=== PATIENT | male | born 1985 | race Caucasian/White ===

== ENCOUNTER 2016-08-20 01:00 | Emergency (ER) | payer OTHER ==
[~2016-08-20] VITALS: Ht 180.3 cm; Wt 104.3 kg
[2016-08-20] MEDS ORDERED: IV NORMAL SALINE 1000ML BAG 1,000 ML IV SCH (01:30)
[2016-08-20] MEDS ORDERED: CONTRAST GIVEN MC PRN (01:45)
[2016-08-20] MEDS ORDERED: IOHEXOL 300 MG/ML 75 ML VIAL IV ONE (01:45)
[2016-08-20 01:55] LABS: BASO % 1 % (0-3); EOS % 5 % (0-3); HEMATOCRIT 41.3 % (39.0-53.0); HEMOGLOBIN 14.5 g/dL (13.0-17.5); LYMPH # 2.4 x10^3/uL (1.0-4.8); LYMPH % 41 % (24-48); MEAN CORPUSCULAR HEMOGLOBIN 34 pg (25-35); MEAN CORPUSCULAR HGB CONC 35 g/dL (31-37); MEAN CORPUSCULAR VOLUME 98 fL (79-100); MONO % 12 % (0-9); NEUT % 42 % (31-73); PLATELET COUNT 156 x10^3/uL (140-400); RED BLOOD COUNT 4.23 x10^6/uL (4.30-5.70); RED CELL DISTRIBUTION WIDTH 13.3 % (11.5-14.5); WHITE BLOOD COUNT 5.8 x10^3/uL (4.0-11.0)
[2016-08-20 02:03] LABS: CALCIUM 8.7 mg/dL (8.5-10.1); CREATININE 1.1 mg/dL (0.7-1.3); GFR 78.6; POTASSIUM 3.8 mmol/L (3.5-5.1)
[2016-08-20 02:11] LABS: ALBUMIN 4.2 g/dL (3.4-5.0); ALBUMIN/GLOBULIN RATIO 1.2 (1.0-1.7); TOTAL BILIRUBIN 0.7 mg/dL (0.2-1.0); TOTAL PROTEIN 7.8 g/dL (6.4-8.2)
--- NOTE | 2016-08-20 02:29 | RAD ---
INDICATION: Abdomen pain. COMPARISON: None TECHNIQUE: Axial CT images obtained through the abdomen and pelvis. Intravenous contrast was utilized. One or more of the following individualized dose reduction techniques were utilized for this examination: 1. Automated exposure control; 2. Adjustment of the mA and/or kV according to patient size; 3. Use of iterative reconstruction technique. FINDINGS: Abdominal aorta not aneurysmal. No intrahepatic bile duct dilation. No peripancreatic edema. Spleen unremarkable. No hydronephrosis. No definite evidence of small bowel obstruction. Bladder unremarkable within limits of CT. Appendix does not appear grossly inflamed. IMPRESSION: No evidence of appendicitis, small bowel obstruction or hydronephrosis. Electronically signed by: Fadi Newman (Aug 20, 2016 02:28:03)
--- NOTE | 2016-08-20 02:37 | PHYS DOC ---
Past Medical History Past Medical History: Other Additional Past Medical Histor: heart murmur Past Surgical History: Other Additional Past Surgical Histo: wisdom teeth Alcohol Use: Occasionally Drug Use: None Adult General Chief Complaint Chief Complaint: ABDOMINAL PAIN HPI HPI Patient is a 30 year old gentleman who presents here today complaining of. Buccal pain 1 week that is now radiating down to his right lower quadrant. Patient denies any history of hypertension diabetes liver longer kidney problems. Patient has not had any abdominal surgeries in the past. Patient does not smoke drink or do any drugs. Patient is not allergic to any medications. 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 Patient denies any fevers shakes chills nausea vomiting diarrhea dysuria frequency urgency hematemesis, bright red blood per rectum, chest pain shortness of breath, hematuria. Patient reports the pain is intermittent. He reports the pain increases when he is moving around. Patient presents pain increases when he is in his his truck. Patient's physical exam was unremarkable. Patient reports she is currently pain- free. Patient's abdomen was soft nontender no rebound or guarding. No psoas or obturator signs. Normal active bowel sounds. No hernia defect is palpable are appreciable. Patient is currently completely nontender. A/P #1 abdominal pain. Patient will be discharged to home in stable condition. Patient had a workup in the ER that was unremarkable with a normal CT scan and normal labs. Again patient is completely asymptomatic at this time. I discussed with the patient this possibly could be secondary to gastritis versus possibly intermittent ventral hernia. At this time patient has no appreciable hernia defect and his CT scan did not show any signs or symptoms of her hernia or appendicitis. Review of Systems Review of Systems Constitutional: Denies fever or chills [] Eyes: Denies change in visual acuity, redness, or eye pain [] HENT: Denies nasal congestion or sore throat [] All other review systems are negative except as documented in the history of present illness portion. Current Medications Current Medications Current Medications Medications (Trade) Dose Ordered Sig/Luz Start Time Stop Time Status Last Admin Dose Admin Info (Do NOT chart on this entry -- for MONITORING) 1 each PRN DAILY PRN 08/20/16 01:45 08/20/16 03:26 DC Iohexol (Omnipaque 300 Mg/ml) 75 ml 1X ONCE 08/20/16 01:45 08/20/16 01:46 DC 08/20/16 02:15 75 ML Sodium Chloride (Iv Sodium Chloride 0.9% 1000ml Bag) 1,000 ml @ 1,000 mls/hr Q1H 08/20/16 01:30 08/20/16 02:29 DC 08/20/16 01:39 1,000 MLS/HR Allergies Allergies Allergies Coded Allergies Type Severity Reaction Last Updated Verified No Known Drug Allergies 02/29/16 No Physical Exam Physical Exam Constitutional: Well developed, well nourished, no acute distress, non-toxic appearance. [] HENT: Normocephalic, atraumatic, bilateral external ears normal, oropharynx moist, no oral exudates, nose normal. [] Eyes: PERRLA, EOMI, conjunctiva normal, no discharge. [] Neck: Normal range of motion, no tenderness, supple, no stridor. [] Cardiovascular:Heart rate regular rhythm, no murmur [] Lungs & Thorax: Bilateral breath sounds clear to auscultation [] Abdomen: Bowel sounds normal, soft, no tenderness, no masses, no pulsatile masses. [] Skin: Warm, dry, no erythema, no rash. [] Back: No tenderness, no CVA tenderness. [] Extremities: No tenderness, no cyanosis, no clubbing, ROM intact, no edema. [] Neurologic: Alert and oriented X 3, normal motor function, normal sensory function, no focal deficits noted. [] Psychologic: Affect normal, judgement normal, mood normal. [] Current Patient Data Vital Signs Vital Signs Date Time Temp Pulse Resp B/P Pulse Ox O2 Delivery O2 Flow Rate FiO2 08/20/16 02:58 69 18 120/77 97 Room Air 08/20/16 01:19 97.8 97.8 Lab Values Laboratory Tests Test 08/20/16 01:30 White Blood Count 5.8x10^3/uL (4.0-11.0) Red Blood Count 4.23x10^6/uL (4.30-5.70) L Hemoglobin 14.5g/dL (13.0-17.5) Hematocrit 41.3% (39.0-53.0) Mean Corpuscular Volume 98fL (79-100) Mean Corpuscular Hemoglobin 34pg (25-35) Mean Corpuscular Hemoglobin Concent 35g/dL (31-37) Red Cell Distribution Width 13.3% (11.5-14.5) Platelet Count 156x10^3/uL (140-400) Neutrophils (%) (Auto) 42% (31-73) Lymphocytes (%) (Auto) 41% (24-48) Monocytes (%) (Auto) 12% (0-9) H Eosinophils (%) (Auto) 5% (0-3) H Basophils (%) (Auto) 1% (0-3) Neutrophils # (Auto) 2.4x10^3uL (1.8-7.7) Lymphocytes # (Auto) 2.4x10^3/uL (1.0-4.8) Monocytes # (Auto) 0.7x10^3/uL (0.0-1.1) Eosinophils # (Auto) 0.3x10^3/uL (0.0-0.7) Basophils # (Auto) 0.0x10^3/uL (0.0-0.2) Sodium Level 140mmol/L (136-145) Potassium Level 3.8mmol/L (3.5-5.1) Chloride Level 103mmol/L (98-107) Carbon Dioxide Level 32mmol/L (21-32) Anion Gap 5 (6-14) L Blood Urea Nitrogen 15mg/dL (8-26) Creatinine 1.1mg/dL (0.7-1.3) Estimated GFR (Cockcroft-Gault) 78.6 BUN/Creatinine Ratio 14 (6-20) Glucose Level 92mg/dL (70-99) Calcium Level 8.7mg/dL (8.5-10.1) Total Bilirubin 0.7mg/dL (0.2-1.0) Aspartate Amino Transferase (AST) 13U/L (15-37) L Alanine Aminotransferase (ALT) 31U/L (16-63) Alkaline Phosphatase 54U/L (46-116) Total Protein 7.8g/dL (6.4-8.2) Albumin 4.2g/dL (3.4-5.0) Albumin/Globulin Ratio 1.2 (1.0-1.7) Lipase 176U/L (73-393) Laboratory Tests 08/20/16 01:30 Laboratory Tests 08/20/16 01:30 EKG EKG [] Radiology/Procedures Radiology/Procedures [] Course & Med Decision Making Course & Med Decision Making Pertinent Labs and Imaging studies reviewed. (See chart for details) [] Dragon Disclaimer Dragon Disclaimer This electronic medical record was generated, in whole or in part, using a voice recognition dictation system. Departure Departure Impression: Primary Impression: Abdominal pain Disposition: HOME, SELF-CARE Condition: STABLE Referrals: NO PCP (PCP) Patient Instructions: Abdominal Pain (Nonspecific) Additional Instructions: Please follow up with your primary care physician to get a referral to see a GI specialist for further evaluation of your abdominal pain. MIGUEL VILLARREAL MD Aug 20, 2016 02:37
[2016-08-20 02:58] VITALS: BP 120/77
== END 2016-08-20 03:10 | disposition home or self-care (01) ==
LOC: ER 01:00
DX: R10.31 Right lower quadrant pain (principal)
CPT/HCPCS: 36415; 74177; 80053; 83690; 85027; 96360; 99285; J7030; Q9967